=== PATIENT | female | born 1990 | race Caucasian/White ===

== ENCOUNTER → 2021-04-07 03:24 | Outpatient (CLI) | payer BC, SELFPAY ==
[2021-04-07 20:47] LABS: SARS-CoV-2 RNA PCR Negative
== END ==
PROVIDERS: Visit Provider Obstetrics & Gynecology
DX: Z01.812 Encounter for preprocedural laboratory examination (principal); Z20.822 Contact with and (suspected) exposure to COVID-19
CPT/HCPCS: C9803; U0003; U0005

== ENCOUNTER 2021-04-07 08:47 | Outpatient (CLI) | payer BC, SELFPAY ==
[2021-04-07 09:09] LABS: Basophils Absolute Auto 0.1 K/mm3 (0.0-0.1); Basophils Percent Auto 0.6 % (0.2-1.2); Eosinophils Absolute Auto 0.3 K/mm3 (0-0.3); Eosinophils Percent Auto 3.4 % (0-4.4); Hematocrit 43.7 % (37.0-47.0); Hemoglobin 14.6 g/dL (12.0-15.0); Immature Granulocyte Absolute 0.02 K/mm3 (0.00-0.031); Immature Granulocyte Percent A 0.2 % (0-0.5); Lymphocytes Absolute Auto 1.84 K/mm3 (0.9-3.2); Mean Corpuscular HGB Conc 33.4 g/dl (32-36); Mean Corpuscular Hemoglobin 30.8 pg (26-34); Mean Corpuscular Volume 92.2 fl (80-100); Mean Platelet Volume 9.3 fl (7.4-10.4); Monocytes Absolute Auto 0.9 K/mm3 (0.1-0.6); Monocytes Percent Auto 9.3 % (2.6-8.5); Neutrophils Absolute Auto 6.5 K/mm3 (1.3-6.7); Neutrophils Percent Auto 67.5 % (45.5-73.1); Platelet Count Result 275 k/mm3 (150-375); Red Blood Count 4.74 M/mm3 (4.2-5.4); Red Cell Distribution Width 13.2 % (11.5-14.5); White Blood Count 9.7 K/mm3 (4.5-10.0)
== END 2021-04-07 08:48 | disposition home or self-care (01) ==
LOC: ANHSURGERY 08:50
PROVIDERS: PCP Family Medicine; Visit Provider Obstetrics & Gynecology
DX: Z01.818 Encounter for other preprocedural examination (principal); N81.4 Uterovaginal prolapse, unspecified
CPT/HCPCS: 36415; 85025; 86850; 86900; 86901

== ENCOUNTER 2021-04-10 02:43 | Day surgery (SDC) | payer BC, SELFPAY ==
[2021-04-03 10:05] VITALS: BMI 33.3
--- NOTE | 2021-04-08 09:55 | PM.IMHP ---
H&P: HPI History of Present Illness Date/Time: 04/08/21 09:55 30-year-old 1 para 1 admitted for robotic hysterectomy and bilateral salpingectomy secondary to enlarged uterus pelvic pain prolapse and dyspareunia. Risks and benefits were reviewed in great details. She received the [employer] handout entitled hysterectomy as well as the de Qi handout. She had all questions answered and asked to proceed Chief Complaint: Pelvic pain and prolapse Review of Systems Review of Systems: All systems reviewed & are unremarkable except as noted in HPI and below [facility] Social History Social History Smoking status: Never smoker Alcohol intake: current Spiritual care concerns: No Meds Home Medications and Allergies Home Medications Medication Instructions Recorded Confirmed Type bupropion HCl [Wellbutrin XL] 150 mg PO QAM 04/03/21 04/03/21 History buspirone 5 mg PO TID PRN 04/03/21 04/03/21 History multivitamin 1 tablet PO DAILY 04/03/21 04/03/21 History zinc 100 mg PO DAILY 04/03/21 04/03/21 History Allergies Allergy/AdvReac Type Severity Reaction Status Date / Time ciprofloxacin [From Cipro] Allergy Severe Dizziness Verified 04/03/21 09:55 Exam Const: General: no acute distress Eyes: General: appearance normal, both eyes and all related structures Neck: Neck: supple and no JVD Thyroid: thyroid normal Resp: Effort & Inspection: normal respiratory effort Auscultation: clear to auscultation bilaterally Cardio: Rate: regular rate Rhythm: regular rhythm GI: Inspection: non-distended GI Palp: Yes Soft to palpation, No Tenderness to palpation present (GI) and No Guarding due to palpation present (GI) Auscultation: normal bowel sounds : External Female Exam: normal external appearance Speculum Exam - Vagina: normal appearance of the vagina Speculum Exam - Cervix: Cervical os closed (Prolapse is noted) Bimanual exam- vagina & uterus: enlarged Bimanual Exam- Adnexa, other: no masses Skin: General skin exam: no rashes or lesions noted Extrem: General: normal to inspection and no edema Psych: Mental Status: mental status grossly normal Affect: normal affect Assessment and Plan Additional Plan Impression: Enlarged uterus pelvic pain prolapse and dyspareunia Plan: Robotic total vaginal hysterectomy and bilateral salpingectomy
[2021-04-10] VITALS (11 sets, daily range): BP systolic 102–131; BP diastolic 53–81; PULSE 58–95; RESP 12–20; TEMP 36.6–37.3; O2SAT 97–100
--- NOTE | 2021-04-10 07:00 | WPDHPUPDATE1 ---
History and Physical Update Update Date/Time: 04/10/21 07:00 History and Physical has been reviewed, including an updated exam of the patient. There are NO changes in the patient's condition. Risks, benefits, and alternatives have been discussed and questions answered. Patient agrees to proceed with procedure.
[2021-04-10] MEDS: ACETAMINOPHEN 500 MG TABLET 1000 MG PO (10:17)
--- NOTE | 2021-04-10 10:17 | WPDANESEPPF ---
Anes - Initial Pre Proc Eval Procedure: Operation Date: 04/10/21 11:30 Proposed Procedures p Robotic Assisted Total Vaginal Hysterectomy with Bilateral Salpingectomy - Foster Drew MD Date/Time: 04/10/21 10:17 Surgeon: Foster Drew MD Pre Op Diagnosis: pelvic pain, uterine prolapse, enlarged uterus Patient Data Age: 30 Gender: F Height: 1.73 m Weight: 99.8 kg Last Vital Signs Temp 36.6 C 04/10/21 09:27 Pulse 80 04/10/21 09:27 Resp 20 04/10/21 09:27 BP 131/68 04/10/21 09:27 Pulse Ox 100 04/10/21 09:27 Allergies Allergy/AdvReac Type Severity Reaction Status Date / Time ciprofloxacin [From Cipro] AdvReac Intermediate Dizziness Verified 04/10/21 10:04 Home Medications Medication Instructions Recorded Confirmed Type bupropion HCl [Wellbutrin XL] 150 mg PO QAM 04/03/21 04/10/21 History buspirone 5 mg PO TID PRN 04/03/21 04/10/21 History zinc 30 mg PO DAILY 04/03/21 04/10/21 History ascorbic acid (vitamin C) [Vitamin 250 mg PO DAILY 04/10/21 04/10/21 History C] hydrocodone-acetaminophen 1 tablet PO Q4H PRN #30 tablet 04/10/21 Rx Patient hx anesthesia problems: none Family hx anesthesia problems: none PMFSH Social History Social History Smoking status: Never smoker Alcohol intake: current Living arrangements: with family Spiritual care concerns: No Anes - Eval Final PreProcedure Day of Procedure 04/10/21 10:17 Patient weight: obese Heart: regular rate and rhythm Lungs: clear to auscultation and normal air movement Airway: Mallampati scale class II Neurological: alert and oriented Last oral intake: >/= 8 hours ASA classification: II Emergent: no Anesthetic plan: proceed Anesthesia type and monitoring: general ETT Informed Consent: The patient's anesthetic plan and its attendant risks and benefits were discussed with the patient/family/POA. Questions were solicited and answers provided to the satisfaction of the patient/family/POA.
[2021-04-10] MEDS: LACTATED RINGERS 1,000 ML 30 ML IV CONT ×2 (10:30→13:07)
[2021-04-10] MEDS: KETOROLAC 15 MG/ML VIAL (*BKC) IV PUSH (10:34)
[2021-04-10] MEDS: SCOPOLAMINE 1.5 MG PATCH TRANSDERM (10:34)
[2021-04-10] MEDS: ceFAZolin 2 GM/D5W 50 ML 2 GM/50 ML BAG IVPB (11:53)
--- NOTE | 2021-04-10 12:52 | W.PM.PROC2 ---
Procedure Note - Detailed Date of Procedure 04/10/21 Pre-op Diagnosis pelvic pain, uterine prolapse, enlarged uterus Post-op Diagnosis same Procedure Performed Robotic total vaginal hysterectomy and bilateral salpingectomy Surgeon Foster Drew MD Anesthesia general Indications this 30-year-old female with a history of chronic pelvic pain and prolapse enlarged uterus Findings enlarged uterus. Normal-appearing ovaries and tubes Description of Procedure the patient is prepped draped in the normal sterile fashion placed in dorsal lithotomy position. Under excellent general endotracheal anesthesia weighted speculum placed posterior fornix vagina. Anterior lip of the cervix grasped with a single-tooth tenaculum and the uterus sounded to 10cm. Serial dilatation with fragmented dilators performed followed passes the 10. ALLI and the 3. Cold cup. Next 16 Kinyarwanda catheter was placed in the right other instruments removed. The gloves were changed. A supraumbilical incision made the Veress needle passed in the abdomen. The abdomen was filled with CO2 gas [id number]. The 8mm trocar advanced the abdomen the downside visualized and no injury seen. Patient was placed in Trendelenburg and right and left lateral quadrant incisions made the 8mm trocars advanced under direct visualization assuring no injury. The 10mm trocar was advanced in the right upper quadrant under direct visualization assuring no injury. The robot was docked. Attention was turned to the console. The left round ligament was grasped, burned, cut anteriorly a bladder flap was formed by sharply dissecting the peritoneum and gently reflecting the bladder caudally from the uterus and cervix to the opposite round ligament which was clamped, burned, cut. Next the the tube on left was sharply dissected using monopolar cautery away from the ovarian complex and left at its base the uterus the superior the contralateral side remove right fallopian tube. Next the utero-ovarian ligament on the left skeleton was skeletonized to conserve the left ovary is was clamped, burned, cut brought to level previously cut round ligament conserving the right ovary the utero-ovarian ligament was clamped, burned, cut broad of previous cut round ligament the right. The cardinal broad ligaments were then serially skeletonized and from the lateral edge of the uterus and cervix clamping burning and cutting until the uterine vessels could be seen on the left these were individually clamped, burned, cut there noted be large and tortuous. This was repeated on the contralateral side by clamping burning and cutting the cardinal ligaments along the ureter current uterus and cervix clamping burning cutting until the uterine vessels could be seen on the right these were then individually clamped, burned, cut. Excellent blanching of the uterus was noted in a colpotomy incision was made. The cervix uterus and tubes were removed through the vagina. The vagina was closed with continuous running 0V lock from lateral edge to lateral edge back to the midline. Hemostasis was assured and irrigation undertaken and blood loss at after blood loss estimated. [place] term was placed on the raw surface area of the vagina the robot was undocked the gas was removed from the abdomen the incisions were closed with 4 Monocryl and glue after gas removed from the abdomen blood loss estimated at25cc all sponge needle and instrument counts were correct there were no immediate complications Estimated Blood Loss 25 Drains No Packing No Pathology yes Complications No immediate complications Condition stable Disposition PACU
[2021-04-10] MEDS: fentaNYL CITRATE INJ (*CRX) 100 MCG/2 ML VIAL 25 MCG IV PUSH ×6 (13:24→14:07)
--- NOTE | 2021-04-10 14:16 | PC.NURSE ---
This patient, Estefany Cardoso, was received from PACU on 04/10/21 at 1416 per stretcher. Patient oriented to unit policies and routines
[2021-04-10] MEDS: DEXTROSE 5%/LACTATED RINGERS 1,000 ML 125 ML IV CONT (14:56)
[2021-04-10] MEDS: DOCUSATE SODIUM 100 MG CAPSULE PO (16:44)
[2021-04-10] MEDS: HYDROcodone/acetaminophen (*CRX) 5-325 MG TABLET 1 TAB PO ×2 (16:44→23:13)
[2021-04-10] MEDS: IBUPROFEN 600 MG TABLET PO ×2 (16:44→23:12)
[2021-04-10] MEDS: SIMETHICONE 80 MG TAB.CHEW PO (23:12)
[2021-04-11 04:00] VITALS: BP 110/63; PULSE 81; RESP 18; TEMP 36.8
[2021-04-11 04:44] LABS: Basophils Percent Auto 0.2 % (0.2-1.2); Eosinophils Percent Auto 0.1 % (0-4.4); Hematocrit 40.4 % (37.0-47.0); Hemoglobin 13.3 g/dL (12.0-15.0); Immature Granulocyte Absolute 0.09 K/mm3 (0.00-0.031); Immature Granulocyte Percent A 0.5 % (0-0.5); Lymphocytes Absolute Auto 1.58 K/mm3 (0.9-3.2); Lymphocytes Percent Auto 9.4 % (18.3-44.2); Mean Corpuscular HGB Conc 32.9 g/dl (32-36); Mean Corpuscular Hemoglobin 31.1 pg (26-34); Mean Corpuscular Volume 94.4 fl (80-100); Mean Platelet Volume 9.7 fl (7.4-10.4); Monocytes Absolute Auto 0.9 K/mm3 (0.1-0.6); Monocytes Percent Auto 5.6 % (2.6-8.5); Neutrophils Absolute Auto 14.2 K/mm3 (1.3-6.7); Neutrophils Percent Auto 84.2 % (45.5-73.1); Platelet Count Result 300 k/mm3 (150-375); Red Blood Count 4.28 M/mm3 (4.2-5.4); Red Cell Distribution Width 13.3 % (11.5-14.5); White Blood Count 16.8 K/mm3 (4.5-10.0)
[2021-04-11] MEDS: HYDROcodone/acetaminophen (*CRX) 5-325 MG TABLET 1 TAB PO (05:17)
[2021-04-11] MEDS: IBUPROFEN 600 MG TABLET PO (05:18)
[2021-04-11] MEDS: SIMETHICONE 80 MG TAB.CHEW PO (05:19)
[2021-04-11 07:30] VITALS: BP 105/63; PULSE 73; RESP 18; TEMP 37.5
[2021-04-11] MEDS: DOCUSATE SODIUM 100 MG CAPSULE PO (07:34)
[2021-04-11] MEDS: ENOXAPARIN 40 MG/0.4 ML SYRINGE SUB-Q (07:35)
--- NOTE | 2021-04-11 08:54 | WPDANESPN ---
Anes - Prog Note Post-Op Date/Time: 04/11/21 08:54 Cardiovascular status: normal Respiratory status: normal Airway patency: baseline Mental status: baseline Post-Op hydration status: normal Vital Signs: Last Vital Signs Temp 99.5 F 04/11/21 07:30 Pulse 73 04/11/21 07:30 Resp 18 04/11/21 07:30 BP 105/63 04/11/21 07:30 Pulse Ox 100 04/10/21 14:15 Pain Score (VAS): 0 I/O: Intake & Output 04/10/21 04/11/21 04/11/21 23:59 07:59 15:59 Intake Total 1500 2500 Output Total 250 1950 Balance 1250 550 Laboratory Tests 04/11/21 03:45 04/11/21 03:45 WBC 16.8 H RBC 4.28 Hgb 13.3 Hct 40.4 MCV 94.4 MCH 31.1 MCHC 32.9 RDW 13.3 Plt Count 300 MPV 9.7 Immature Gran % (Auto) 0.5 Neut % (Auto) 84.2 H Lymph % (Auto) 9.4 L [place] % (Auto) 5.6 Eos % (Auto) 0.1 Baso % (Auto) 0.2 Lymph # (Auto) 1.58 [place] # (Auto) 0.9 H Eos # (Auto) 0.0 Baso # (Auto) 0.0 Abs Immat Gran (auto) 0.09 H Absolute Neuts (auto) 14.2 H Absolute Nucleated RBC 0.0 Nucleated RBC % 0.0 Post-procedural complaints: other (pt experienced marked blurred vision. scopalomine patch removed approx 0500 this am. pt states she is having some improvement with vision though still slightly blurry. ) Patient Feedback: Patient satisfied with anesthetic care.
--- NOTE | 2021-04-11 09:00 | PM.GYNPNOP ---
SAGGER FILLER - A/P Postoperative Procedures: Procedures Operation Date: 04/10/21 11:30 Actual Procedure Side Surgeon p Robotic Assisted Total Vaginal Hysterectomy with Bilateral Salpingectomy Bilateral Foster Drew MD A: POD#1, doing well. P: Home to f/u 2 weeks. Time Spent With Patient Time with patient: less than 15 minutes SAGGER FILLER- PN:Subj Post-Op Subjective Date/time seen: 04/11/21 09:00 Interval history: Pain OK. Tolerating diet. Voiding. Would like to go home. Exam Narrative: AVSS I/O OK ABD soft, nontender. Incisions c/d/i. EXT nontender SAGGER FILLER - PN: Obj Data Vital Signs Vital Signs: Vital Signs - 24 hr 04/10/21 09:27 04/10/21 13:07 04/10/21 13:15 Temperature 36.6 C 36.6 C Pulse Rate 80 69 62 Respiratory Rate 20 16 18 Blood Pressure 131/68 107/74 119/73 Pulse Oximetry 100 100 100 04/10/21 13:30 04/10/21 13:45 04/10/21 14:00 Temperature Pulse Rate 67 58 L 66 Respiratory Rate 12 14 12 Blood Pressure 121/81 118/81 118/72 Pulse Oximetry 100 97 100 04/10/21 14:10 04/10/21 14:15 04/10/21 17:40 Temperature 36.6 C 37.3 C Pulse Rate 68 66 88 Respiratory Rate 16 18 Blood Pressure 120/70 120/70 113/75 Pulse Oximetry 100 100 04/10/21 18:30 04/10/21 23:15 04/11/21 04:00 Temperature 37.2 C 36.9 C 36.8 C Pulse Rate 95 80 81 Respiratory Rate 18 18 18 Blood Pressure 110/70 102/53 L 110/63 Pulse Oximetry 04/11/21 07:30 Temperature 37.5 C Pulse Rate 73 Respiratory Rate 18 Blood Pressure 105/63 Pulse Oximetry Intake/Output Intake/Output: Intake & Output 04/08/21 04/09/21 04/10/21 04/11/21 23:59 23:59 23:59 23:59 Intake Total 1850 2500 Output Total 280 1950 Balance 1570 550 Meds/Results Medications: Active Medications Generic Name Dose Route Start Last Admin Trade Name Freq PRN Reason Stop Dose Admin Hydrocodone Bitart/Acetaminophen 1 tab 04/10/21 14:14 04/11/21 05:17 Hydrocodone/Acetaminophen (*Crx) 5-325 Mg Tablet PO 1 tab Q3H PRN Administration Pain Rated 5 or Less Hydrocodone Bitart/Acetaminophen 1 tab 04/10/21 14:14 Hydrocodone/Acetaminophen (*Crx) 10-325 Mg Tablet PO Q3H PRN Pain Rated 6 or Greater Docusate Sodium 100 mg 04/10/21 17:00 04/11/21 07:34 Docusate Sodium 100 Mg Capsule PO 100 mg BID REAL Administration Enoxaparin Sodium 40 mg 04/11/21 09:00 04/11/21 07:35 Enoxaparin 40 Mg/0.4 Ml Syringe SUB-Q 40 mg DAILY REAL Administration Ibuprofen 600 mg 04/10/21 14:14 04/11/21 05:18 Ibuprofen 600 Mg Tablet PO 600 mg Q6H PRN Administration Cramping Ketorolac Tromethamine 30 mg 04/10/21 14:14 Ketorolac 30 Mg/Ml Vial (*Bkc) IV PUSH 04/15/21 14:13 Q6H PRN Pain Rated 4-6 Naloxone HCl 0.1 mg 04/10/21 14:14 Naloxone Hcl 0.4 Mg/Ml Vial IV PUSH Q2M PRN Respiratory rate less than 10 Ondansetron HCl 4 mg 04/10/21 14:14 Ondansetron Inj 4 Mg/2 Ml Vial IV PUSH Q6H PRN Nausea And Vomiting Simethicone 80 mg 04/10/21 14:14 04/11/21 05:19 Simethicone 80 Mg Tab.Chew PO 80 mg Q2H PRN Administration Gas Labs CBC & Chem 7: 04/11/21 03:45 Labs: Laboratory Results - last 24 hr 04/11/21 03:45 WBC 16.8 H RBC 4.28 Hgb 13.3 Hct 40.4 MCV 94.4 MCH 31.1 MCHC 32.9 RDW 13.3 Plt Count 300 MPV 9.7 Immature Gran % (Auto) 0.5 Neut % (Auto) 84.2 H Lymph % (Auto) 9.4 L [place] % (Auto) 5.6 Eos % (Auto) 0.1 Baso % (Auto) 0.2 Lymph # (Auto) 1.58 [place] # (Auto) 0.9 H Eos # (Auto) 0.0 Baso # (Auto) 0.0 Abs Immat Gran (auto) 0.09 H Absolute Neuts (auto) 14.2 H Absolute Nucleated RBC 0.0 Nucleated RBC % 0.0
== END 2021-04-11 10:02 | disposition home or self-care (01) ==
LOC: ANHSURGERY 09:10 → ANHOB2 14:17
PROVIDERS: PCP Family Medicine; Visit Provider Obstetrics & Gynecology
PROC: (CPT 58552; principal; 2021-04-10 11:30)
DX: N81.4 Uterovaginal prolapse, unspecified (principal); R10.2 Pelvic and perineal pain; G89.29 Other chronic pain; N94.10 Unspecified dyspareunia; E66.9 Obesity, unspecified; Z68.33 Body mass index [BMI] 33.0-33.9, adult
CPT/HCPCS: 58552; S2900; 36415; 85025; 88307; 99199; A9270; J0690; J1100; J1170; J1650; J1885; J2250; J2405; J2704; J2710; J3010; J7030; J7120; J7121

== ENCOUNTER 2023-09-02 01:05 | Day surgery (SDC) | payer OTHER, SELFPAY ==
[2023-08-29 10:33] VITALS: BMI 34.2
--- NOTE | 2023-08-29 10:37 | PC.NURSE ---
Report to the Outpatient Waiting Room, entrance under the green pavilion located off [facility], at time 0600 on date 09/02/23. Planned Procedure Time: 0730. Time changes happen often and if your time is changed the preop area will call you the afternoon before. - You and your visitor will be asked to self-screen and do not enter if you have any COVID symptoms. - A mask is optional within the hospital at this time. Patients may have clear liquids (water, carbonated beverages, clear teas, apple juice) until 3 hours prior to surgery with a maximum of 20 ounces. - No food from midnight until time of surgery Take the following medications with a SIP of water the morning of surgery: NONE DO NOT STOP ANY OF YOUR OTHER PRESCRIPTION MEDICATIONS PRIOR TO SURGERY ?EXCEPT THE FOLLOWING Medications to discontinue per physician: VITAMINS/SUPPLEMENTS Date to take last dose: 08/29/23 Please no make-up, nail prydeinig, hairspray, perfume, deodorant, or body powder the day of surgery. No jewelry (including any body piercings) or valuables the day of surgery, leave them at home. Please take a shower or bath the night before, or the morning of, surgery with an antibacterial soap. Wear comfortable, loose fitting clothing. - Jewelry must be removed prior to entering the operating room. Rings and piercings that are not removed may be cut off. - The hospital will not accept responsibility for valuables. - Please leave all valuables, including medications, at home the day of surgery. If you are going home after surgery, a licensed gas truck driver must drive you home. - NO public transportation without another adult if you receive anesthesia. - We recommend that an adult stay with you for 24 hours following discharge. - We also recommend that you do not drive, make important decision, drink alcoholic beverages, or take any drugs that were not prescribed by your health care provider for at least 24 hours after your discharge time. Follow any additional instructions given to you from your surgeon. If you or anyone in your household have experienced Covid symptoms in the past week, please notify your surgeon or the nurse liaison at the phone number below for possible testing. Telephone instructions given to PT - SOFIA NEWBERRY and asked if any additional questions and then verbalized understanding. Patient advised to call surgeon office or pre surgery nurse liaison [phone] if any additional questions.
--- NOTE | 2023-08-31 16:14 | P.HP_ITS ---
H&P: HPI History of Present Illness Date/Time: 08/31/23 16:14 Chief Complaint: Stress urinary incontinence Narrative: This is a 33 year female status post hysterectomy who is admitted for tension- free vaginal tape and cystoscopy. She complains of losing urine coughing laughing sneezing this has been going on for several years. She has attempted Kegel exercises and nothing has helpful. She finds is socially embarrassing and would like to have this repaired. She will undergo TVT. Risks and benefits reviewed including not exclusive , aspiration ligament bleeding trend, transfusion, perforation injury to bowel, bladder, ureters, or other internal organs with need for open laparotomy. The risks of mesh were reviewed and it is phases. She had all questions answered and asked to proceed PMFSH Social History Social History Smoking status: Never smoker Alcohol intake: never Substance use: never Substance use type: does not use Living arrangements: with family Spiritual care concerns: No Meds Home Medications and Allergies Home Medications Medication Instructions Recorded Confirmed Type escitalopram oxalate 10 mg tablet 10 mg PO HS 08/29/23 08/29/23 History multivitamin 1 tablet PO DAILY 08/29/23 08/29/23 History Allergies Allergy/AdvReac Type Severity Reaction Status Date / Time sertraline Allergy Rash Verified 08/29/23 10:32 Exam Const: General: cooperative, healthy appearing and comfortable Nutritional Appearance: average body habitus Orientation/consciousness: oriented to person, oriented to place and oriented to time HENMT: Head: normal to inspection Resp: Effort & Inspection: normal respiratory effort Cardio: Rate: regular rate Rhythm: regular rhythm Heart sounds: S1 normal heart sound present and S2 normal heart sound present GI: Inspection: normal to inspection : External Female Exam: normal external appearance and normal appearance of the urethra (Hyper reactivity with Valsalva maneuver) Speculum Exam - Vagina: normal appearance of the vagina Speculum Exam - Cervix: Cervix absent Bimanual exam- vagina & uterus: uterus absent Bimanual Exam- Adnexa, other: normal adnexae Assessment and Plan Assessment and plan (1) Primary stress urinary incontinence: Code(s): N39.3 - Stress incontinence (female) (male) Status: Acute Plan Tension-free vaginal tape
[2023-09-02] VITALS (8 sets, daily range): BP systolic 109–125; BP diastolic 66–81; PULSE 67–97; RESP 12–18; TEMP 36.5; O2SAT 97–100
--- NOTE | 2023-09-02 06:33 | WPDHPUPDATE1 ---
History and Physical Update Update Date/Time: 09/02/23 06:33 History and Physical has been reviewed, including an updated exam of the patient. There are NO changes in the patient's condition. Risks, benefits, and alternatives have been discussed and questions answered. Patient agrees to proceed with procedure.
--- NOTE | 2023-09-02 06:38 | WPDANESEPPF ---
Anes - Initial Pre Proc Eval Procedure: Operation Date: 09/02/23 07:30 Proposed Procedures p Tension Free Vaginal Taping - Foster Saba MD Date/Time: 09/02/23 06:38 Surgeon: Foster Saba MD Pre Op Diagnosis: stress urinary incont Patient Data Age: 33 Gender: F Height: 1.71 m Weight: 100.7 kg Allergies Allergy/AdvReac Type Severity Reaction Status Date / Time sertraline Allergy Rash Verified 09/02/23 06:00 Home Medications Medication Instructions Recorded Confirmed Type escitalopram oxalate 10 mg tablet 10 mg PO HS 08/29/23 09/02/23 History multivitamin 1 tablet PO DAILY 08/29/23 09/02/23 History hydrocodone 5 mg-acetaminophen 325 1 tablet PO Q4H PRN pain #20 tabs 09/02/23 Rx mg tablet Patient hx anesthesia problems: none Family hx anesthesia problems: none Results Review: All pre-operative results and documents have been reviewed as part of the pre-operative evaluation. [facility] Past Medical History Medical History (Updated 09/02/23 @ 06:38 by Foster Gloria MD) Obesity Surgical History Surgical History (Updated 09/02/23 @ 06:39 by Foster Gloria MD) H/O: hysterectomy Social History Social History Smoking status: Never smoker Alcohol intake: never Substance use: never Substance use type: does not use Living arrangements: with family Spiritual care concerns: No Anes - Eval Final PreProcedure Day of Procedure 09/02/23 06:38 Patient weight: obese Heart: regular rate and rhythm Lungs: clear to auscultation Airway: Mallampati scale class II Neurological: alert and oriented Last oral intake: >/= 8 hours ASA classification: II Emergent: no Anesthetic plan: proceed Anesthesia type and monitoring: general LMA and standard monitoring Results Review: All pre-operative results and documents have been reviewed as part of the pre-operative evaluation. Informed Consent: The patient's anesthetic plan and its attendant risks and benefits were discussed with the patient/family/POA. Questions were solicited and answers provided to the satisfaction of the patient/family/POA.
[2023-09-02] MEDS: LACTATED RINGERS 1,000 ML 30 ML IV CONT (06:40)
[2023-09-02] MEDS: SCOPOLAMINE 1 MG PATCH 1 PATCH TRANSDERM (06:44)
[2023-09-02] MEDS: ceFAZolin 2 GM/D5W 50 ML 2 GM/50 ML BAG IVPB (07:21)
--- NOTE | 2023-09-02 08:00 | P.OP_ITS ---
Procedure Note - Detailed Date of Procedure 09/02/23 Pre-op Diagnosis stress urinary incont Post-op Diagnosis Same Procedure Performed Cystoscopy/ tension-free vaginal tape Surgeon Foster Saba MD Anesthesia General Indications 33-year-old female with stress urinary Findings hyper reactive urethra with bowels Description of Procedure patient was prepped draped in normal sterile fashion placed in the dorsal lithotomy position. Excellent general anesthesia weighted speculum placed in posterior fornix vagina. An 18 Chinese catheter was placed and bladder drained of clear urine. Mid urethral incision was made and lateral bladder spaces and entered the bilaterally by blunt dissection. Catheter guide was placed in the bladder retracted to the opposite side the right retropubic bladder space entere d at 35-40 degree angle under pubic bone up through 35 to the fashion skin. This was removed in the urethral guide retracted the bladder bladder urethra in the opposite direction the lateral bladder space was entered at a 45 degree angle up to 35 through the fascia and skin. The catheter was removed and the 70degree cystoscope was inserted no injury was seen. The catheter was replaced and the tape brought up to tightness of an open pee on clamped. The set flat Dali the plastic was removed and the mesh trimmed at the suprapubic area. The vagina was closed with 3-0 Vicryl. She tolerated the procedure well blood loss was estimated 5cc. All sponge, needle, instrument counts were correct. Were no immediate complications Implants tension-free vaginal tape device Estimated Blood Loss 5 Drains No Packing No Pathology None sent Complications No immediate complications Condition Stable Disposition PACU
--- NOTE | 2023-09-02 08:22 | SUR.PHASEI ---
0822: Simple mask removed.
[2023-09-02] MEDS: fentaNYL CITRATE INJ (*CRX) 100 MCG/2 ML VIAL 25 MCG IV PUSH ×2 (08:35→08:38)
[2023-09-02] MEDS: ACETAMINOPHEN 500 MG TABLET 1000 MG PO (09:45)
== END 2023-09-02 10:00 | disposition home or self-care (01) ==
PROVIDERS: PCP Family Medicine; Visit Provider Obstetrics & Gynecology
PROC: 0TSD0ZZ Reposition Urethra, Open Approach (ICD-10-PCS; CPT 57288; principal; 2023-09-02 07:30)
DX: N39.3 Stress incontinence (female) (male) (principal); E66.9 Obesity, unspecified; Z68.34 Body mass index [BMI] 34.0-34.9, adult
CPT/HCPCS: 57288; 36415; 86850; 86900; 86901; A9270; C1771; J0690; J1100; J2250; J2405; J2704; J3010; J7030; J7120